=== PATIENT | female | born 1955 | race Caucasian/White ===

== ENCOUNTER → 2016-10-17 | Outpatient (REF) | payer BC ==
[2016-10-17 20:21] LABS: BACTERIA, URINE MOD AMOUNT; SQUAMOUS EPITHELIAL CELL URINE MOD AMOUNT /hpf (SMALL AMT)
[2016-10-17 20:30] LABS: HYALINE CAST, URINE NONE SEEN /lpf (0-1); MICROSCOPIC EXAM PERFORMED; TRANSITIONAL EPI CELLS, URINE SMALL AMOUNT /hpf
== END ==
LOC: M LAB REF 16:45
PROVIDERS: ATTEND Nurse Practitioner Adult Health
DX: N39.0 Urinary tract infection, site not specified (principal); L03.90 Cellulitis, unspecified

== ENCOUNTER → 2016-10-25 | Outpatient (REF) | payer BC ==
[2016-10-25 13:24] LABS: COMPLEMENT C4 35.5 MG/DL (10-40)
[2016-10-27 00:06] LABS: Lyme Disease IgG/IgM Antibodie <0.91 ISR (0.00-0.90); Lyme Disease IgM Ab Quantitati <0.80 index (0.00-0.79)
== END ==
LOC: M LAB REF 12:29
PROVIDERS: ATTEND Nurse Practitioner Adult Health
DX: N39.0 Urinary tract infection, site not specified (principal); R21 Rash and other nonspecific skin eruption

== ENCOUNTER → 2017-07-16 | Outpatient (CLI) | payer BC | LOC: M WHC 10:29 | DX: Z12.31 Encounter for screening mammogram for malignant neoplasm of breast (principal); Z78.0 Asymptomatic menopausal state | CPT/HCPCS: 77067 ==

== ENCOUNTER 2018-05-26 08:52 | Day surgery (SDC) | payer BC, MEDICARE ==
[~2018-05-26 08:52] MED LIST: LIDOCAINE 2% INJ 100 MG/5 ML SDV (FOR ANES.) As Ordered; PROPOFOL 200 MG/20 ML VIAL As Ordered
[2018-05-26] MEDS: NS 1,000 ML IV ×2 (09:12)
== END 2018-05-26 11:41 | disposition home or self-care (01) ==
LOC: M OPP 08:52
DX: K64.0 First degree hemorrhoids (principal); R12 Heartburn; K22.8 Other specified diseases of esophagus; K44.9 Diaphragmatic hernia without obstruction or gangrene; K20.9 Esophagitis, unspecified; I77.3 Arterial fibromuscular dysplasia; M85.9 Disorder of bone density and structure, unspecified; Z79.899 Other long term (current) drug therapy; Z79.82 Long term (current) use of aspirin; Z91.041 Radiographic dye allergy status; Z80.3 Family history of malignant neoplasm of breast; Z98.890 Other specified postprocedural states; Z86.79 Personal history of other diseases of the circulatory system; Z88.8 Allergy status to other drugs, medicaments and biological substances; Z88.1 Allergy status to other antibiotic agents
CPT/HCPCS: 45378

== ENCOUNTER → 2018-09-30 | Outpatient (REF) | payer MEDICARE, BC ==
[~2018-09-30] MED LIST changes: +ASPI81TA85 PO; +HYDR-643 PO; -LIDOCAINE 2% INJ 100 MG/5 ML SDV (FOR ANES.) As Ordered; +NASA1SPR; -PROPOFOL 200 MG/20 ML VIAL As Ordered
== END ==
LOC: M SFHCWAGY 13:36
PROVIDERS: ATTEND Nurse Practitioner Family
DX: Z12.4 Encounter for screening for malignant neoplasm of cervix (principal); B37.3 Candidiasis of vulva and vagina

== ENCOUNTER → 2018-09-30 | Outpatient (CLI) | payer MEDICARE, BC ==
--- NOTE | 2018-09-30 14:59 | REP ---
BILATERAL MAMMOGRAM WITH 3D TOMOSYNTHESIS: Family history - mother with breast cancer at age 80. [facility] lifetime risk of breast cancer 11.8%. Comparison 07/16/2017 as well as other prior exams. Bilateral mammography performed with 3D tomosynthesis. Mild scattered fibroglandular tissue is fairly symmetrical. No mass or architectural distortion is seen. Tiny calcifications are seen in the anterior aspect of the left breast slightly laterally. I would recommend magnification views to further evaluate. IMPRESSION: Tiny calcifications seen anteriorly in the left breast slightly laterally. Recommend magnification views to further evaluate. BIRADS 0: BI-RADS/ACR category 0 mammogram, Incomplete: Need additional imaging evaluation and/or prior mammograms for comparison. This mammogram was interpreted with the aid of an FDA-approved computer-aided detection system. The patient states she/he had a clinical breast exam in 09/2018. The patient letter being requested is M0.
== END ==
LOC: M WHC 13:11
PROVIDERS: ATTEND Nurse Practitioner Family
DX: R92.2 Inconclusive mammogram (principal); R92.1 Mammographic calcification found on diagnostic imaging of breast; Z80.3 Family history of malignant neoplasm of breast; Z12.4 Encounter for screening for malignant neoplasm of cervix; B37.3 Candidiasis of vulva and vagina
CPT/HCPCS: 77063; 77067; G0101; G0123

== ENCOUNTER → 2018-10-03 | Outpatient (CLI) | payer MEDICARE, BC ==
--- NOTE | 2018-10-03 14:23 | REP ---
DIAGNOSTIC MAMMOGRAM LEFT BREAST: Multiple magnification views of the left breast are performed. Correlation made with a recent mammogram of 09/30/2018. These magnification views confirm the presence of clustered tiny pleomorphic calcifications anteriorly in the upper outer quadrant of the left breast. These appear somewhat suspicious and stereotactic biopsy is recommended. IMPRESSION: BIRADS 4: BI-RADS/ACR category 4 mammogram. Suspicious Abnormality - biopsy should be considered. Clustered pleomorphic microcalcifications anteriorly in the upper outer quadrant of the left breast. Recommend stereotactic biopsy. Patient letter requested is M4. Electronically Signed by Aristides Garrido MD 10/03/2018 04:22 P
== END ==
LOC: M RAD 13:04
PROVIDERS: ATTEND Nurse Practitioner Family
DX: R92.1 Mammographic calcification found on diagnostic imaging of breast (principal)

== ENCOUNTER → 2018-10-27 | Outpatient (CLI) | payer MEDICARE, BC ==
[~2018-10-27] MED LIST changes: +LIDOCAINE 1% MDV 20ML VIAL As Ordered ONE
--- NOTE | 2018-10-27 15:38 | REP ---
SPECIMEN RADIOGRAPH: Specimen radiograph performed following sterotactic biopsy of clustered microcalcifications in the left breast. Multiple calcifications are seen in the specimens. Electronically Signed by Aristides Garrido MD 10/27/2018 04:34 P
--- NOTE | 2018-10-27 17:47 | REP ---
Stereotactic breast biopsy. This procedure is performed by FARRUKH Martinez, under the vessel supervision of Dr. Garrido. The patient has a history of suspicious grouping of pleomorphic microcalcifications in the upper outer quadrant of the left breast on the mammogram dated 10/03/2018. The risks and benefits of the procedure were explained to the patient and informed consent was obtained both verbally and written. Directly prior to the start of the procedure, a formal time out was done in the procedure room. The cranial caudal approach was utilized. The calcifications were localized using stereotactic mammographic guidance. 10 ml of 1% lidocaine was used as a local anesthetic. An 8-gauge, suction assisted Mammotome needle was inserted, another 10 ml of lidocaine was given with the needle in place, and 6 core biopsy samples were obtained. Specimen radiograph demonstrate the presence of microcalcifications to be within the specimen. A marker clip was placed at the biopsy site. The needle was removed and homeostasis was achieved. The patient tolerated the procedure well and there were no immediate complications. After the appropriate tip of monitored convalescence the patient was discharged from the department. Impression: Technically successful stereotactic breast biopsy Reviewed by FARRUKH Haque 10/27/2018 01:49 P Electronically Signed by Aristides Garrido MD 10/27/2018 05:39 P
== END ==
LOC: M RADPRO 10:33
PROVIDERS: ATTEND Surgery
DX: D24.2 Benign neoplasm of left breast (principal)

== ENCOUNTER → 2018-11-26 | Outpatient (REF) | payer MEDICARE, BC ==
[~2018-11-26] MED LIST changes: -LIDOCAINE 1% MDV 20ML VIAL As Ordered ONE
== END ==
LOC: M LAB REF 18:54
PROVIDERS: ATTEND Ophthalmology
DX: D23.122 Other benign neoplasm of skin of left lower eyelid, including canthus (principal)

== ENCOUNTER → 2020-04-06 | Outpatient (CLI) | payer MEDICARE, BC ==
[~2020-04-06] MED LIST changes: -ASPI81TA85 PO; +ASPI81TA86 PO
--- NOTE | 2020-04-06 15:20 | REPMRS ---
Patient History The patient states she had a clinical breast exam in 03/2020. Family history of breast cancer at age 80 in mother, pancreatic cancer at age 79 in paternal grandmother. Benign radio exam breast specimen of the left breast, October 27, 2018. Benign stereotatic loc for ea lesion of the left breast, October 27, 2018. Benign core biopsy of the left breast, October 27, 2018. No Hormone Replacement Therapy 3D TOMOSYNTHESIS WAS PERFORMED. [facility] lifetime risk for breast cancer is 10.6%. VOLPARA DENSITY B. Digital Woman Screen Mammo: April 06, 2020 - Exam #: [id number] Bilateral CC and MLO view(s) were taken. Technologist: Linda Murillo, Technologist Prior study comparison: October 03, 2018, left breast digital mammo diagnostic unilateral, performed at [facility]. September 30, 2018, bilateral digital woman screen mammo performed at [facility]. FINDINGS: There are scattered fibroglandular densities. There has been no change in the appearance of the mammogram from the prior studies. There is a mild amount of residual fibroglandular tissue which is fairly symmetric. There is no interval development of dominant mass, architectural distortion, or clustered microcalcification suggestive of malignancy. Assessment: BI-RADS/ACR category 1 mammogram. Negative Mammogram. Recommendation Routine screening mammogram in 1 year (for women over age 40). This mammogram was interpreted with the aid of an FDA-approved computer-aided dectection system. Electronically Signed By: Aristides Garrido MD 04/06/20 [id number]
== END ==
LOC: M WHC 13:15
PROVIDERS: ATTEND Nurse Practitioner Family
DX: Z12.31 Encounter for screening mammogram for malignant neoplasm of breast (principal); Z80.3 Family history of malignant neoplasm of breast; Z86.018 Personal history of other benign neoplasm

== ENCOUNTER → 2021-04-11 | Outpatient (CLI) | payer MEDICARE, BC ==
--- NOTE | 2021-04-11 10:59 | REPMRS ---
Patient History The patient states she had a clinical breast exam in 2020. Family history of breast cancer at age 80 in mother, pancreatic cancer at age 79 in paternal grandmother. Benign radio exam breast specimen of the left breast, October 27, 2018. Benign stereotatic loc for ea lesion of the left breast, October 27, 2018. Benign core biopsy of the left breast, October 27, 2018. No Hormone Replacement Therapy Tomosynthesis is performed. Volpara breast density is b. [facility]%. No breast complaints today Patient signed the MRS sheet 1st covid vaccine 09/30/20-Moderna 2nd covid vaccine 10/26/20-patient not sure which arm either were in Pri[facility] on PACS Patient Identification Verified Digital Woman Screen Mammo: April 11, 2021 - Exam #: [id number] Bilateral CC and MLO view(s) were taken. Technologist: Maria Boss, Technologist Prior study comparison: April 06, 2020, bilateral digital woman screen mammo performed at [facility]. October 03, 2018, left breast digital mammo diagnostic unilateral, performed at [facility]. FINDINGS: There are scattered fibroglandular densities. There has been no change in the appearance of the mammogram from the prior studies. There is a mild amount of residual fibroglandular tissue which is fairly symmetric. There is no interval development of dominant mass, architectural distortion, or clustered microcalcification suggestive of malignancy. Assessment: BI-RADS/ACR category 1 mammogram. Negative Mammogram. Recommendation Routine screening mammogram in 1 year (for women over age 40). This mammogram was interpreted with the aid of an FDA-approved computer-aided dectection system. Electronically Signed By: Aristides Garrido MD 04/11/21 [id number]
== END ==
LOC: M WHC 08:56
PROVIDERS: ATTEND Nurse Practitioner Women's Health
DX: Z01.419 Encounter for gynecological examination (general) (routine) without abnormal findings (principal); Z12.31 Encounter for screening mammogram for malignant neoplasm of breast; Z80.3 Family history of malignant neoplasm of breast; Z86.018 Personal history of other benign neoplasm
CPT/HCPCS: 77063; 77067; G0101

== ENCOUNTER → 2021-11-09 | Outpatient (CLI) | payer MEDICARE, BC | LOC: M WHC 10:31 | PROVIDERS: ATTEND Nurse Practitioner Adult Health | DX: M81.0 Age-related osteoporosis without current pathological fracture (principal) ==

== ENCOUNTER → 2022-04-11 | Outpatient (CLI) | payer MEDICARE, BC | LOC: M WHC 08:44 | PROVIDERS: ATTEND Nurse Practitioner Adult Health | DX: Z12.31 Encounter for screening mammogram for malignant neoplasm of breast (principal) ==

== ENCOUNTER → 2023-04-29 | Outpatient (CLI) | payer MEDICARE, BC | LOC: M WHC 10:23 | PROVIDERS: ATTEND Nurse Practitioner Family | DX: Z12.31 Encounter for screening mammogram for malignant neoplasm of breast (principal); R92.1 Mammographic calcification found on diagnostic imaging of breast ==

== ENCOUNTER → 2023-04-29 | Outpatient (REF) | payer MEDICARE, BC | LOC: M SFHCWAGY 17:56 | PROVIDERS: ATTEND Nurse Practitioner Family | DX: Z12.4 Encounter for screening for malignant neoplasm of cervix (principal) | CPT/HCPCS: 87624; G0123 ==

== ENCOUNTER → 2024-05-01 | Outpatient (CLI) | payer MEDICARE, BC | LOC: M WHC 09:13 | PROVIDERS: ATTEND Nurse Practitioner Family | DX: Z13.820 Encounter for screening for osteoporosis (principal); Z12.31 Encounter for screening mammogram for malignant neoplasm of breast; M85.852 Other specified disorders of bone density and structure, left thigh ==

== ENCOUNTER → 2024-07-24 | Outpatient (CLI) | payer MEDICARE, BC ==
[2024-07-24 15:18] LABS: BASO # 0.1 10^3/uL (0.0-0.2); BASO % 0.5 % (0.0-1.0); EOS # 0.2 10^3/uL (0.0-0.5); EOS % 1.7 % (0.0-3.0); HEMOGLOBIN 13.4 g/dl (12.0-15.5); LYMPH # 2.5 10^3/uL (1.5-5.0); LYMPH % 24.4 % (24.0-44.0); MEAN CORPUSCULAR HEMOGLOBIN 28.9 pg (27.0-33.0); MEAN CORPUSCULAR HGB CONC 32.7 g/dl (32.0-36.5); MEAN CORPUSCULAR VOLUME 88.6 fl (80.0-96.0); MONO # 0.6 10^3/uL (0.0-0.8); MONO % 6.1 % (2.0-8.0); NEUTROPHILS # 6.9 10^3/uL (1.5-8.5); NEUTROPHILS % 67.1 % (36.0-66.0); PLATELET COUNT, AUTOMATED 102 10^3/uL (150-450); RED BLOOD COUNT 4.63 10^6/uL (4.00-5.40); WHITE BLOOD COUNT 10.3 10^3/uL (4.0-10.0)
[2024-07-24 15:48] LABS: ALBUMIN 3.6 G/DL (3.2-5.2); ALKALINE PHOSPHATASE 137 U/L (35-104); ALT/SGPT 22 U/L (7.0-40); AST/SGOT 17 U/L (<34); BILIRUBIN,TOTAL 0.3 MG/DL (0.3-1.2); BLOOD UREA NITROGEN 21 MG/DL (9-23); CALCIUM LEVEL 9.6 MG/DL (8.3-10.6); CARBON DIOXIDE LEVEL 30 MMOL/L (20-31); CHLORIDE LEVEL 101 MMOL/L (98-107); GLOMERULAR FILTRATION RATE > 60.0 (>39); GLUCOSE, FASTING 95 MG/DL (74-106); POTASSIUM SERUM 3.7 MMOL/L (3.5-5.1); SODIUM LEVEL 142 MMOL/L (136-145); TOTAL PROTEIN 7.8 G/DL (5.7-8.2)
[2024-07-24 15:50] LABS: THYROID STIMULATING HORMONE 2.956 uIU/ML (0.55-4.78)
[2024-07-24 18:48] LABS: HEPATITIS B SURFACE ANTIGEN NEGATIVE (NEGATIVE)
[2024-07-24 19:09] LABS: HEPATITIS C VIRUS ABY INDEX 0.02 INDEX (<0.8)
[2024-07-24 19:10] LABS: HEPATITIS B CORE ANTIBODY IGM NEGATIVE (NEGATIVE)
== END ==
LOC: M LAB 14:20 → M RAD 14:20
PROVIDERS: ATTEND Nurse Practitioner Family
DX: Z01.89 Encounter for other specified special examinations (principal); L28.1 Prurigo nodularis; Z79.899 Other long term (current) drug therapy

== ENCOUNTER → 2025-05-19 | Outpatient (CLI) | payer MEDICARE, BC | LOC: M WHC 11:31 | PROVIDERS: ATTEND Nurse Practitioner Family | DX: Z12.31 Encounter for screening mammogram for malignant neoplasm of breast (principal); R92.323 Mammographic fibroglandular density, bilateral breasts; R92.1 Mammographic calcification found on diagnostic imaging of breast ==